=== PATIENT | female | born 1940 | race Caucasian/White ===

== ENCOUNTER 2020-09-16 02:48 | Emergency (ER) | payer MEDICARE, MEDICAID ==
[~2020-09-16] VITALS: Ht 167.6 cm; Wt 75.0 kg
[2020-09-16] MEDS ORDERED: normal saline 1000ML IV soln IV ONE (03:35)
[2020-09-16] MEDS ORDERED: morphine 4 MG/ML inj SYRINge IV ONE (03:45)
[2020-09-16] MEDS ORDERED: ondansetron/PF 4mg/2ml inj IV ONE (03:45)
[2020-09-16 03:58] LABS: BASOPHILS % (AUTO) 0.2 % (0-1); EOSINOPHILS % (AUTO) 0.1 % (0-6); HEMATOCRIT 40.2 % (35.0-45.0); HEMOGLOBIN 13.5 g/dl (12.0-16.0); LYMPHOCYTES # (AUTO) 1.1 X10'3 (1.1-4.8); LYMPHOCYTES % (AUTO) 12.6 % (21-51); MEAN CORPUSCULAR HEMOGLOBIN 30.2 PG (27.0-31.0); MEAN CORPUSCULAR HGB CONC 33.6 g/dL (33.0-36.5); MEAN CORPUSCULAR VOLUME 89.9 FL (78-98); MEAN PLATELET VOLUME 8.2 FL (7.4-10.4); MONOCYTES # (AUTO) 0.7 X10'3 (0-0.9); MONOCYTES % (AUTO) 8.5 % (2-12); NEUTROPHILS # (AUTO) 6.7 X10'3 (1.8-7.7); NEUTROPHILS % (AUTO) 78.6 % (42-75); PLATELET COUNT 219 X10'3 (140-440); RED BLOOD COUNT 4.47 X10'6 (4.20-5.60); RED CELL DISTRIBUTION WIDTH 13.6 % (11.5-14.5); WHITE BLOOD COUNT 8.5 X10'3 (4.5-11.0)
[2020-09-16 04:09] LABS: ALANINE AMINOTRANSFERASE 40 U/L (12-78); ALKALINE PHOSPHATASE 67 IU/L (46-116); ANION GAP 10 (8-16); BILIRUBIN,TOTAL 1.2 MG/DL (0.1-1.0); BLOOD UREA NITROGEN 16 MG/DL (7-18); BUN/CREATININE RATIO 14.5 (6.6-38.0); CALCIUM 9.3 MG/DL (8.5-10.1); CHLORIDE 103 MMOL/L (99-107); GLUCOSE 134 MG/DL (70-104); MAGNESIUM 1.9 MG/DL (1.5-2.4); SODIUM 138 MMOL/L (135-145); TOTAL CARBON DIOXIDE 24.8 MMOL/L (24-32); eGFR 48 ML/MIN
[2020-09-16 04:12] LABS: ASPARTATE AMINO TRANSFERASE 33 U/L (10-37)
[2020-09-16] MEDS ORDERED: metoprolol tartrate 1mg/ml inj IV ONE (04:40)
[2020-09-16] MEDS ORDERED: ketorolac tromethamine 15mg/ml inj. IV ONE (04:40)
[2020-09-16] MEDS ORDERED: ketorolac tromethamine 15mg/ml inj. IM ONE (04:45)
[2020-09-16 05:10] LABS: CLARITY,URINE CLEAR (Clear); COLOR,URINE YELLOW (Yellow); GLUCOSE, URINE NEGATIVE (Neg); KETONES,URINE 40 mg/dl (Neg); LEUKOCYTE ESTERASE ,URINE NEGATIVE (Neg); NITRITES, URINE NEGATIVE (Neg); OCCULT BLOOD,URINE MODERATE (Neg); PROTEIN,URINE NEGATIVE (Neg); UROBILINOGEN,URINE 0.2 E.U/dL (0.2-1.0)
[2020-09-16 05:16] LABS: UA COLLECTION TYPE NON-SPECIFIED
[2020-09-16 05:17] LABS: BACTERIA,URINE NONE SEEN /HPF (Neg); SQUAMOUS EPITHELIAL CELL,UR FEW /LPF (FEW); WBC,URINE NONE SEEN /HPF (0-4)
[2020-09-16] MEDS ORDERED: CLIN-97 PO (05:26)
[2020-09-16] MEDS ORDERED: clindamycin 600mg/D5W 50ml 50 ML IV ONE (05:30)
[2020-09-16] MEDS ORDERED: clindamycin phosphate inj 600 MG in normal saline 50ml IV soln 50 ML IV ONE (05:30)
--- NOTE | 2020-09-16 05:36 | NUR ---
GIVEN METOPROLOL FOR TACHYCARDIA 130'S. HR NOW 110-117. BP [address] GARCIA AWARE. PT TO RECEIVE IV ABS AND THEN DC READY.
--- NOTE | 2020-09-16 06:15 | NUR ---
PTS CLINDAMYCIN FINISHED AND DC PAPERWORK REVIEWED. PT SAT UP AT EDGE OF BED AND STOOD UP AND THEN SAT BACK ON BED. HR UP TO 135. HR HAD BEEN 107-120 ST WHEN DOING DC INSTRUCTIONS. DR. SILVERMAN AT BEDSIDE AND ORDER FOR STAT EKG. REPORT TO TED PADILLA AND JAGDEEP PADILLA.
[2020-09-16] MEDS ORDERED: diltiazem 5mg/ml 5ml inj. IV ONE (06:25)
[2020-09-16] MEDS ORDERED: normal saline 1000ML IV soln IVB ONE (06:40)
[2020-09-16] MEDS ORDERED: METR500T PO (06:42)
[2020-09-16] MEDS ORDERED: METH4TAB81 PO (06:42)
[2020-09-16] MEDS ORDERED: APIX5TAB3 PO (06:42)
[2020-09-16] MEDS ORDERED: SOTA80TA PO (06:42)
--- NOTE | 2020-09-16 07:10 | NUR ---
Pt with continued tachycardia, second EKG done, new orders per Dr. Junior. Remains on continuous SpO2 and cardiac monitoring, IV Diltiazem given per DEC.
[2020-09-16 07:16] LABS: D-DIMER 1.67 MG/L FEU (0-0.50)
[2020-09-16] MEDS ORDERED: heparin 10,000 units/1 ML INJ IV ONE (07:50)
[2020-09-16] MEDS ORDERED: iohexol 350MG/ML 100ml bottle IV ONE (08:03)
--- NOTE | 2020-09-16 08:18 | NUR ---
To CT with tech
[2020-09-16 08:25] LABS: PARTIAL THROMBOPLASTIN TIME 28 SECONDS (22-32)
--- NOTE | 2020-09-16 08:38 | NUR ---
PT BACK FROM CT. HOOK PT BACK UP TO VS EQUIPMENT.
--- NOTE | 2020-09-16 08:50 | NUR ---
Per Dr. Junior: pt is to receive IV bolus of Heparin now, for new Afib.
[2020-09-16 10:07] VITALS: BP 120/80
== END 2020-09-16 10:10 | disposition home or self-care (01) ==
LOC: ER 02:48
DX: I48.91 Unspecified atrial fibrillation (principal); K04.7 Periapical abscess without sinus; R51.9 Headache, unspecified; M26.623 Arthralgia of bilateral temporomandibular joint; Z79.2 Long term (current) use of antibiotics; Z79.899 Other long term (current) drug therapy
CPT/HCPCS: 36415; 70490; 71275; 80053; 81001; 83735; 84145; 84443; 84484; 85025; 85379; 85610; 85730; 93005; 96361; 96365; 96372; 96375; 99285; J1644; J1885; J2270; J2405; J7030; Q9967; J3490

== ENCOUNTER 2020-10-06 07:15 | Emergency (ER) | payer MEDICARE, MEDICAID ==
[~2020-10-06] VITALS: Ht 165.1 cm; Wt 65.0 kg
[~2020-10-06 07:15] MED LIST: APIX5TAB3 PO; CLIN-97 PO; METH4TAB81 PO; SOTA80TA PO
[2020-10-06 07:20] VITALS: BP 130/55
== END 2020-10-06 08:49 | disposition home or self-care (01) ==
LOC: ER 07:15
DX: M26.629 Arthralgia of temporomandibular joint, unspecified side (principal); Z76.0 Encounter for issue of repeat prescription; Z79.899 Other long term (current) drug therapy
CPT/HCPCS: 99282